=== PATIENT | male | born 1990 | race Caucasian/White ===

== ENCOUNTER 2018-08-03 17:19 | Emergency (ER) | payer SELFPAY ==
[~2018-08-03] VITALS: Ht 180.3 cm; Wt 87.1 kg
--- NOTE | 2018-08-03 17:26 | NUR ---
PT AMBULATED TO ER BED 11
[2018-08-03 17:30] VITALS: BP 162/102
--- NOTE | 2018-08-03 17:30 | NUR ---
PT. ARRIVED TO THE ED W/ C/O R EAR PAIN X THIS MORNING. DENIES ANY TRAUMA, DENIES ANY N/V/D. DENIES ANY DIZZYNESS. 05/10 NON RADIATING SHARP PAIN IN R EAR. NO DISCHARGE NOTED. ER MD MADE AWARE. WILL CONTINUE TO MONITOR. RR EVEN AND UNLABORED. PT. IS ACTIVELY IN TEARS WHEN ASSESSED. SAFETY PRECAUTIONS IMPLEMENTED.
--- NOTE | 2018-08-03 17:39 | NUR ---
ER AT BEDSIDE
[2018-08-03] MEDS ORDERED: KETOROLAC 60 MG/2 ML VIAL IM ONE (17:40)
[2018-08-03 18:54] VITALS: BP 141/80
--- NOTE | 2018-08-03 18:54 | NUR ---
Patient discharged with v/s stable. Written and verbal after care instructions given and explained. Patient alert, oriented and verbalized understanding of instructions. Ambulatory with steady gait. All questions addressed prior to discharge. ID band removed. Patient advised to follow up with PMD. Rx of Motrin, Amoxicillin, [place], Sudafed, and Cortisporin given. Patient educated on indication of medication including possible reaction and side effects. Opportunity to ask questions provided and answered.
== END 2018-08-03 18:54 | disposition home or self-care (01) ==
LOC: MED 17:19
DX: H66.91 Otitis media, unspecified, right ear (principal); Z98.890 Other specified postprocedural states
CPT/HCPCS: 96372; 99283; J1885